=== PATIENT | male | born 1980 | race Caucasian/White ===

== ENCOUNTER 2022-01-21 08:11 | Day surgery (SDC) | payer OTHER ==
[~2022-01-21] VITALS: Ht 182.9 cm; Wt 119.1 kg
[~2022-01-21 08:11] MED LIST: IBUP200 PO
--- NOTE | 2022-01-21 12:10 | NUR ---
Patient up to Ambulate independently. Gait steady. Discharge instructions reviewed with patient. Patient verbalizes understanding. Copy given to patient to take home. Patient States Post-Procedure ride home has been arranged. Discharged via wheelchair to private car for ride home. INCISION X 4 INTACT NO DRAINAGE DERMA LUJAN IN PLACE
== END 2022-01-21 23:18 | disposition home or self-care (01) ==
LOC: ORSCMMR 08:11 → ORD 09:30 → ORSCMMR 23:18
PROVIDERS: Surgery
PROC: 0WUF4JZ Supplement Abdominal Wall with Synthetic Substitute, Percutaneous Endoscopic Approach (ICD-10-PCS; principal; 2022-01-21 09:30)
DX: K42.0 Umbilical hernia with obstruction, without gangrene (principal); Z87.891 Personal history of nicotine dependence; K21.9 Gastro-esophageal reflux disease without esophagitis; E66.9 Obesity, unspecified; Z68.35 Body mass index [BMI] 35.0-35.9, adult
CPT/HCPCS: A9270; C1781; J0690; J1100; J1885; J2250; J2405; J2704; J2795; J3010; J7120